=== PATIENT | female | born 1965 | race Hispanic/Latino ===

== ENCOUNTER → 2017-12-30 | Outpatient (CLI) | payer MEDICARE ==
[~2017-12-30] MED LIST: ATOR40TA69 PO; GLIP-162 PO; LISI-617 PO; METF10004 PO
== END | disposition home or self-care (01) ==
LOC: RAH 14:29
PROVIDERS: ATTEND Family Medicine
DX: Z12.31 Encounter for screening mammogram for malignant neoplasm of breast (principal)
CPT/HCPCS: 77067